=== PATIENT | female | born 1960 | race Two or more races ===

== ENCOUNTER 2025-04-01 12:46 | Emergency (ER) | payer OTHER ==
[~2025-04-01] VITALS: Ht 162.6 cm; Wt 68.0 kg
[~2025-04-01 12:46] MED LIST: ADVIL100 M1; CEFUROXIME500 MG PO; MELOXICAM15 MG PO; METHOTREXATE2.5 MG PO
[2025-04-01 13:02] VITALS: BP 110/78; O2SAT 99
[2025-04-01] MEDS ORDERED: ONDANSETRON HCL 2 MG/ML VIAL IV ONE (14:30)
[2025-04-01] MEDS ORDERED: FAMOTIDINE/PF 20 MG/2 ML VIAL IV ONE (14:30)
[2025-04-01] MEDS ORDERED: MECLIZINE HCL 25 MG TABLET PO ONE (14:30)
[2025-04-01] MEDS ORDERED: 0.9 % SODIUM CHLORIDE 500 ML IV SCH (14:30)
[2025-04-01 16:54] LABS: BASO % 0.5 % (0.1-1.2); EOS # 0.03 (0.04-0.54); EOS % 0.3 % (0.7-7.0); LYMPH # 1.44 (1.18-3.74); LYMPH % 16.3 % (19.3-53.1); MEAN PLATELET VOLUME 10.10 fl (9.4-12.4); MONO # 0.41 (0.24-0.82); MONO % 4.6 % (4.7-12.5); NEUT # 6.89 (1.56-6.13); NEUT % 78.1 % (34.0-71.1); RED CELL DISTRIBUTION WIDTH 14.4 % (11.6-14.4)
[2025-04-01 16:59] LABS: ERYTHROCYTE SEDIMENTATION RATE > 130 mm/hr (0-30)
[2025-04-01 17:35] LABS: INR 1.1
[2025-04-01 18:05] LABS: ALT/SGPT 13 U/L (12-78); AST/SGOT 19 U/L (15-37); BILIRUBIN TOTAL 0.43 mg/dL (0.3-1.2); BUN CREA RATIO 17 (7.0-25.0); CKMB < 1.0 NG/ML (0.5-3.6); CREATININE SERUM 0.46 mg/dL (0.55-1.02); GFR 137.64; GLOBULINA 4.8 G/DL (2.4-3.5); GLUCOSE FASTING 96 mg/dL (65-100); OSMOLALITY SERUM 274 MOSM/KG (275-295); PHOSPHOKINASE CREATININE 97 U/L (26-192)
[2025-04-01 18:38] LABS: URINE APPEARANCE Clear; URINE BILIRRUBIN Negative (NEGATIVE); URINE BLOOD Negative; URINE COLOR Yellow; URINE GLUCOSE Negative (NEGATIVE); URINE KETONE 15 (NEGATIVE); URINE LEUKOCYTE Negative; URINE NITRATE Negative; URINE PROTEIN Negative (NEGATIVE); URINE UROBILINOGEN 0.2 E.U./dl
[2025-04-01 18:46] LABS: URINE BACTERIA 4.7 uL (0.0-1933); URINE RBC 8.9 uL (0.0-20.8); URINE WBC 5.8 uL (0.0-23.2)
[2025-04-01 18:52] LABS: URINE CAST 0.00 uL (0.0-1.40); URINE EPITHELIAL CELLS 0.9 uL (0.0-38.8)
[2025-04-01] MEDS ORDERED: DRAMAMINE LESS25 MG PO (19:11)
[2025-04-01] MEDS ORDERED: ZOFRAN8 MG PO (19:11)
== END 2025-04-01 19:45 | disposition home or self-care (01) ==
LOC: ER 12:46
DX: R42 Dizziness and giddiness (principal); M06.8A Other specified rheumatoid arthritis, other specified site